=== PATIENT | male | born 1990 | race Caucasian/White ===

== ENCOUNTER 2019-06-02 06:50 | Day surgery (SDC) | payer OTHER ==
[~2019-06-02 06:50] MED LIST: Lactated Ringers 1,000 ML IV SCH
--- NOTE | 2019-06-02 07:55 | PCM.PREANE ---
Preanesthetic Assessment - Anesthesia/Transfusion/Family Hx Anesthesia History: Prior Anesthesia Without Reaction Family History of Anesthesia Reaction: No Transfusion History: No Prior Transfusion(s) Intubation History: Unknown - Review of Systems General: No Symptoms Pulmonary: No Symptoms Cardiovascular: No Symptoms Gastrointestinal: No Symptoms Neurological: No Symptoms Other: Reports: None - Physical Assessment Height: 5 ft 10 in Weight: 95.254 kg ASA Class: 2 Mental Status: Alert & Oriented x3 Airway Class: Mallampati = 2 Dentition: Reports: Normal Dentition Thyro-Mental Finger Breadths: 3 Mouth Opening Finger Breadths: 2 (small mouth) ROM/Head Extension: Full Lungs: Clear to Auscultation, Normal Respiratory Effort Cardiovascular: Regular Rate, Regular Rhythm - Allergies Allergies/Adverse Reactions: Allergies Allergy/AdvReac Type Severity Reaction Status Date / Time No Known Allergies Allergy Verified 05/28/19 07:47 - Blood Blood Available: No - Anesthesia Plan Pre-Op Medication Ordered: None - Acknowledgements Anesthesia Type Planned: General Anesthesia Pt an Appropriate Candidate for the Planned Anesthesia: Yes Alternatives and Risks of Anesthesia Discussed w Pt/Guardian: Yes Pt/Guardian Understands and Agrees with Anesthesia Plan: Yes PreAnesthesia Questionnaire HEENT History: Reports: None Cardiovascular History: Reports: None Respiratory History: Reports: Other (See Below) (h/o asthma as child) Gastrointestinal History: Reports: None Genitourinary History: Reports: None Musculoskeletal History: Reports: None Neurological History: Reports: None Psychiatric History: Reports: None Endocrine/Metabolic History: Reports: Obesity/BMI 30+ Hematologic History: Reports: None Immunologic History: Reports: None Oncologic (Cancer) History: Reports: None Dermatologic History: Reports: None - Past Surgical History Head Surgeries/Procedures: Reports: None HEENT Surgical History: Reports: Oral Surgery Other HEENT Surgeries/Procedures: wisdom teeth extraction Cardiovascular Surgical History: Reports: None Respiratory Surgical History: Reports: None GI Surgical History: Reports: None Male Surgical History: Reports: None Endocrine Surgical History: Reports: None Neurological Surgical History: Reports: None Musculoskeletal Surgical History: Reports: Arthroscopic Knee Other Musculoskeletal Surgeries/Procedures:: hx left knee arthroscopy, 5 years ago Oncologic Surgical History: Reports: None Dermatological Surgical History: Reports: None - SUBSTANCE USE Smoking Status *Q: Never Smoker Tobacco Use Within Last Twelve Months: Snuff/Dip, Other (See Below) Recreational Drug Use History: No - HOME MEDS Home Medications: Home Meds . [No Known Home Meds] 05/28/19 [History] - CURRENT (IN HOUSE) MEDS Current Meds: Current Medications Hydrocodone Bitart/Acetaminophen ([place] 325-5 Mg) 1 - 2 tab PO Q4H PRN PRN Reason: Pain Cefazolin Sodium/Dextrose 2 gm (/ Premix) 50 mls @ 100 mls/hr IV ONCALL MIKE Lactated Ringer's (Ringers, Lactated) 1,000 mls @ 100 mls/hr IV ASDIRECTED MIKE
[2019-06-02] MEDS ORDERED: ceFAZolin 2 GM in Premix Bag 1 BAG IV SCH (08:00)
[2019-06-02] MEDS ORDERED: Acetaminophen/HYDROcodone 325-5 MG Tab PO PRN (08:00)
[2019-06-02] MEDS ORDERED: Propofol 200 MG/20 ML SDV ONE (08:34)
[2019-06-02] MEDS ORDERED: Lidocaine 2% 5 ML SDV ONE (09:00)
[2019-06-02] MEDS ORDERED: fentaNYL 100 MCG/2 ML SDV ONE (09:00)
[2019-06-02] MEDS ORDERED: Midazolam 1 MG/ML 2 ML SDV ONE (09:00)
[2019-06-02] MEDS ORDERED: Ondansetron 4 MG/2 ML SDV ONE (09:00)
[2019-06-02] MEDS ORDERED: ceFAZolin 1 GM Vial ONE (09:22)
[2019-06-02] MEDS ORDERED: Ketamine 500 mg/10 ML MDV ONE (09:27)
[2019-06-02] MEDS ORDERED: Ketorolac 30 MG/ML SDV ONE (09:44)
--- NOTE | 2019-06-02 09:49 | PCM.OPNOTE ---
- General Post-Op/Procedure Note Date of Surgery/Procedure: 06/02/19 Operative Procedure(s): R knee scope with chondroplasty patella Post-Op Diagnosis: R knee patella chondromalacia Anesthesia Technique: General LMA Primary Surgeon: Chio Lamb Principal Automation Engineer: Libertad Ortiz in mLs: 5 Condition: Good Free Text/Narrative:: #[id number]
[2019-06-02] MEDS ORDERED: Ketorolac 30 MG/ML SDV IVPUSH ONE (10:41)
--- NOTE | 2019-06-02 12:52 | OR ---
SURGEON: Chio Lamb MD DATE OF PROCEDURE: 06/02/2019 PREOPERATIVE DIAGNOSIS: Left knee patellar chondromalacia. POSTOPERATIVE DIAGNOSIS: Left knee patellar chondromalacia. PROCEDURE: Left knee arthroscopy with chondroplasty of the patella. PRIMARY SURGEON: Chio Lamb MD. YARDING ENGINEER: Libertad Ortiz PA-C. ANESTHESIA: General. ESTIMATED BLOOD LOSS: 5 mL. TOURNIQUET TIME: See nursing record. COMPLICATIONS: None. DVT PROPHYLAXIS: Not indicated. IMPLANTS USED: None. BRIEF HISTORY: Sonny is a 28-year-old male who has had complaint of continued left knee pain. He did respond for a short time to a diagnostic/therapeutic injection, however, his pain has recurred. Due to his lack of response to conservative treatment, I did recommend surgical intervention. The risks and goals of procedure were discussed with the patient and were documented preoperatively. He agreed to proceed. DESCRIPTION OF PROCEDURE: The patient was properly identified and brought to the operating room. He was transferred from the OR cart and placed on the operating table in supine position. General anesthesia was administered. After adequate anesthesia was obtained, a well-padded tourniquet was applied to the left lower extremity. The left lower extremity was then prepped in standard fashion using ChloraPrep solution. It was then sterilely draped. A time-out was performed to ensure correct site and procedure. Preoperative antibiotics were given. The surgical site had been marked preoperatively. An Esmarch was used to exsanguinate the left lower extremity and the tourniquet was inflated to 250 mmHg. A lateral portal arthrotomy was established. Blunt trocar and cannula were introduced into the suprapatellar space. Camera, inflow, and outflow were assembled. No significant synovitis was noted. The patellofemoral joint was then visualized. He had extensive grade 2 chondromalacia along the medial facet with grade 3 along the entire lateral facet. The trochlear groove also showed a central ridge measuring approximately 5 mm, which did have grade 3 chondromalacia. The patella appeared to track centrally. I then extended down the lateral and medial gutters. No loose bodies were identified. I then entered the medial compartment. The joint surfaces showed no degenerative findings. The meniscus was extensively probed and found to be stable without tearing. I then entered the notch. Both the ACL and PCL were visualized and probed and found to be intact. I then entered the lateral compartment. The lateral meniscus was probed and found to be stable. Joint surfaces showed no degenerative findings. Small fissures were noted within the lateral tibial plateau, however, these were probed and were found to be stable. I then entered the patellofemoral joint. A 4.5 mm oscillating shaver was used to perform a chondroplasty of the patella. The trochlear groove showed no loose cartilage. Instruments were then removed from the knee. The portal sites were closed with 3-0 nylon. 1% Lidocaine was injected along the portal tracts. Xeroform gauze was placed over the wound and a bulky dressing was applied. The tourniquet was then deflated. He was awakened from his anesthetic and transferred back to the operating room cart. He was brought to recovery room in stable condition. All needle and sponge counts were correct. ROCIO / REBECCA /[id number]
[2019-06-02] MEDS ORDERED: Lidocaine 1% 20 ML MDV ONE (12:57)
== END 2019-06-02 11:50 | disposition home or self-care (01) ==
LOC: MW.SDS 06:50
PROVIDERS: ATTEND Orthopaedic Surgery
DX: M22.42 Chondromalacia patellae, left knee (principal); J45.909 Unspecified asthma, uncomplicated; E66.9 Obesity, unspecified; Z68.30 Body mass index [BMI] 30.0-30.9, adult
CPT/HCPCS: 29877; A9270; J0690; J1885; J2001; J2250; J2405; J2704; J3010; J7120; 01400; 88304